=== PATIENT | female | born 1980 | race Caucasian/White ===

== ENCOUNTER 2017-01-18 09:56 | Emergency (ER) | payer OTHER | END 2017-01-18 12:17 | disposition home or self-care (01) | LOC: FER 09:56 | DX: M54.12 Radiculopathy, cervical region (principal); F32.9 Major depressive disorder, single episode, unspecified; F17.210 Nicotine dependence, cigarettes, uncomplicated; Z79.899 Other long term (current) drug therapy; Z88.6 Allergy status to analgesic agent; Z86.14 Personal history of Methicillin resistant Staphylococcus aureus infection; Z87.39 Personal history of other diseases of the musculoskeletal system and connective tissue | CPT/HCPCS: 72040; 73030; J1030 ==

== ENCOUNTER 2017-02-09 07:27 | Emergency (ER) | payer OTHER | END 2017-02-09 08:14 | disposition home or self-care (01) | LOC: FER 07:27 | DX: G89.18 Other acute postprocedural pain (principal); Z98.818 Other dental procedure status | CPT/HCPCS: J1885 ==